=== PATIENT | male | born 1960 | race African-American/Black ===

== ENCOUNTER 2022-08-23 20:18 | Emergency (ER) | payer OTHER ==
[~2022-08-23] VITALS: Ht 182.9 cm; Wt 99.8 kg
[2022-08-23 21:05] VITALS: BP 143/97
--- NOTE | 2022-08-23 21:10 | NUR ---
TO LOBBY FOLLOWING TRIAGE
[2022-08-23 21:31] LABS: BASOPHILS # (AUTO) 0.1 K/uL (0.00-0.22); BASOPHILS % (AUTO) 0.3 % (0.0-2.0); EOSINOPHILS # (AUTO) 0.1 K/uL (0-0.4); EOSINOPHILS % (AUTO) 0.6 % (0.0-4.0); HEMATOCRIT 46.4 % (36-52); HEMOGLOBIN 15.7 g/dL (12.0-18.0); LYMPHOCYTES # (AUTO) 1.1 K/uL (2.0-11.5); LYMPHOCYTES % (AUTO) 6.9 % (20.5-51.1); MEAN CORPUSCULAR HEMOGLOBIN 32 pg (27-31); MEAN CORPUSCULAR HGB CONC 34 g/dL (33-37); MEAN CORPUSCULAR VOLUME 93.4 fL (80-94); MONOCYTES # (AUTO) 0.8 K/uL (0.8-1.0); MONOCYTES % (AUTO) 4.8 % (1.7-9.3); NEUTROPHILS # (AUTO) 13.9 K/uL (1.8-7.7); NEUTROPHILS % (AUTO) 87.4 % (42.2-75.2); PLATELET COUNT (AUTO) 316 K/uL (140-450); RED BLOOD CELL COUNT(AUTO) 4.96 MIL/uL (4.20-6.10); RED CELL DISTRIBUTION WIDTH 12.8 % (11.6-13.7); WHITE BLOOD COUNT (AUTO) 15.9 K/uL (4.8-10.8)
[2022-08-23 22:20] LABS: ALBUMIN 4.4 g/dL (3.4-5.0); ANION GAP 12.2 (8-16); POTASSIUM 4.2 mmol/L (3.5-5.1); TOTAL BILIRUBIN 0.4 mg/dL (0.0-1.0)
--- NOTE | 2022-08-24 01:37 | NUR ---
CALLED PT IN LOBBY, NO ANSWER
--- NOTE | 2022-08-24 01:41 | NUR ---
called pt to number on chart, no answer, left a message.veda mchugh made aware.
--- NOTE | 2022-08-24 06:29 | NUR ---
SPOKE TO ROSEANN, PT'S , UPDATED ON PT'S CT SCAN. STATES SHE WILL WAKE HIM UP AND HAVE HIM COME IN. Addendum: 08/24/22 at 0631 by MATA ABA BISHOP
[2022-08-24] MEDS ORDERED: BENA1TAB PO (12:20)
== END 2022-08-24 01:37 | disposition left against medical advice (07) ==
LOC: MED 20:18
DX: R10.9 Unspecified abdominal pain (principal); Z53.21 Procedure and treatment not carried out due to patient leaving prior to being seen by health care provider
CPT/HCPCS: 36415; 80053; 83690; 85025

== ENCOUNTER 2022-08-24 07:16 | Inpatient (IN) | payer OTHER ==
[~2022-08-24] VITALS: Ht 182.9 cm; Wt 99.8 kg
[2022-08-24 07:21] VITALS: BP 115/79
--- NOTE | 2022-08-24 07:24 | NUR ---
PT AMB TO ER BED 03.
--- NOTE | 2022-08-24 07:38 | NUR ---
Pt bibs as for call back after CT results were recieved this morning and pt eloped. Pt originally came in for abd pain. Pt states he has had normal bowel movements. Pt currently denies pain. Pt is a/o x 4, vss, no ss of acute distress, breathing equal and unlabored, speech clear. has seen pt.
--- NOTE | 2022-08-24 08:11 | NUR ---
Covid specimen obtained/labeled and sent to lab.
[2022-08-24 08:19] LABS: BASOPHILS % (AUTO) 0.2 % (0.0-2.0); EOSINOPHILS # (AUTO) 0.2 K/uL (0-0.4); HEMATOCRIT 42.4 % (36-52); HEMOGLOBIN 14.4 g/dL (12.0-18.0); LYMPHOCYTES # (AUTO) 1.3 K/uL (2.0-11.5); MEAN CORPUSCULAR HEMOGLOBIN 31 pg (27-31); MEAN CORPUSCULAR HGB CONC 34 g/dL (33-37); MEAN CORPUSCULAR VOLUME 92.5 fL (80-94); MONOCYTES # (AUTO) 0.9 K/uL (0.8-1.0); MONOCYTES % (AUTO) 9.6 % (1.7-9.3); NEUTROPHILS # (AUTO) 6.7 K/uL (1.8-7.7); NEUTROPHILS % (AUTO) 74.2 % (42.2-75.2); PLATELET COUNT (AUTO) 287 K/uL (140-450); RED BLOOD CELL COUNT(AUTO) 4.58 MIL/uL (4.20-6.10)
[2022-08-24 08:35] LABS: PROTHROMBIN TIME 10.4 secs (10.8-13.4)
[2022-08-24 08:58] LABS: APPEARANCE,URINE CLEAR (CLEAR); BILIRUBIN,URINE NEGATIVE (NEGATIVE); BLOOD, URINE NEGATIVE (NEGATIVE); COLOR,URINE YELLOW (YELLOW); LEUKOCYTE ESTERASE ,URINE NEGATIVE (NEGATIVE); NITRITE, URINE NEGATIVE (NEGATIVE); UGLUCOSE NEGATIVE (NEGATIVE)
--- NOTE | 2022-08-24 09:00 | NUR ---
UA obtained/labeled and sent to lab.
[2022-08-24 09:08] LABS: ALBUMIN 3.9 g/dL (3.4-5.0); ANION GAP 9.7 (8-16); CARBON DIOXIDE 30.5 mmol/L (21-32); CREATININE 1.1 mg/dL (0.6-1.3); POTASSIUM 3.2 mmol/L (3.5-5.1)
[2022-08-24 09:24] LABS: TOTAL BILIRUBIN 0.7 mg/dL (0.0-1.0)
[2022-08-24] MEDS ORDERED: POTASSIUM CHLORIDE 10 MEQ TABER PO PRN (11:50)
[2022-08-24] MEDS ORDERED: ONDANSETRON 4 MG/2 ML VIAL IVP PRN (11:50)
[2022-08-24] MEDS ORDERED: ACETAMINOPHEN 325 MG TAB PO PRN (11:50)
[2022-08-24] MEDS ORDERED: HYDROcodone/APAP 7.5/325 MG 1 TAB PO PRN (11:50)
[2022-08-24] MEDS ORDERED: MAG SULF 2000 MG/WATER PREMIX 50 ML IV PRN (11:50)
[2022-08-24] MEDS ORDERED: BENA1TAB PO (12:20)
[2022-08-24] MEDS: NACL 0.9% 1,000 ML IV SCH ×2 (12:36→20:22)
[2022-08-24 12:46] LABS: CHOL/HDL RATIO 2.9 (1-4.5); FREE T4 (FREE THYROXINE) 0.94 ng/dL (0.76-1.46); HDL CHOLESTEROL 68 mg/dL (40-60); LDL (CALC) 114 mg/dL (60-100); PHOSPHORUS 2.5 mg/dL (2.5-4.9); THYROID STIMULATING HORMONE 0.71 uIU/mL (0.34-3.74); TRIGLYCERIDES 81 mg/dL (30-150)
--- NOTE | 2022-08-24 13:34 | NUR ---
Report given to PUJA Love. Pt in stable condition, vss, no ss of acute distress.
--- NOTE | 2022-08-24 13:35 | NUR ---
REPORT RECEIVED VIA PHONE FROM ER NURSE.
--- NOTE | 2022-08-24 14:06 | NUR ---
PT ARRIVED ON [facility] UNIT. PT AMBULATORY. NO SOB OR RESPIRATORY DISTRESS. ON RA. DENIES NAUSEA/VOMITING. C/O MILD ABDOMINAL TENDERNESS. NPO. AMBULATORY. NS @ 120 ML/HR. SKIN INTACT. NEEDS ALL MET. ALL SAFETY MEASURES IN PLACE. MRSA NARES TAKEN.
[2022-08-24 14:30] VITALS: BP 128/79
[2022-08-24 16:00] VITALS: BP 125/75
--- NOTE | 2022-08-24 16:10 | NUR ---
PATIENT HAS BEEN SCREENED AND CATEGORIZED MODERATE NUTRITION RISK. PATIENT WILL BE SEEN WITHIN 3-5 DAYS OF ADMISSION. REVIEWED BY ESSENCE DE GUZMAN [address]
--- NOTE | 2022-08-24 16:12 | NUR ---
AASHISH GIPSON GIVEN. AT BEDSIDE. ALL QUESTIONS ANSWERED.
--- NOTE | 2022-08-24 16:30 | NUR ---
DR. DICKINSON ROUNDED ON PT. ORDER FOR TRANSFER TO [facility] AND CARDIAC DIET. ORDERS INPUTTED. ALL QUESTIONS ANSWERED. PT DENIES PAIN. NO N/V/D. NEEDS ALL MET, ALL SAFETY MEASURES IN PLACE.
--- NOTE | 2022-08-24 19:17 | NUR ---
BEDSIDE REPORT GIVEN TO NIGHTSHIFT NURSE TORIBIO FOR CONTINUITY OF CARE.
[2022-08-24] MEDS: DOCUSATE SODIUM 100 MG GELCAP PO SCH (20:44)
[2022-08-25] VITALS: BP 109/78
[2022-08-25] MEDS: NACL 0.9% 1,000 ML IV SCH (03:51)
[2022-08-25 05:44] LABS: BASOPHILS % (AUTO) 0.3 % (0.0-2.0); EOSINOPHILS # (AUTO) 0.2 K/uL (0-0.4); EOSINOPHILS % (AUTO) 3.8 % (0.0-4.0); HEMATOCRIT 40.4 % (36-52); HEMOGLOBIN 13.5 g/dL (12.0-18.0); LYMPHOCYTES # (AUTO) 1.2 K/uL (2.0-11.5); LYMPHOCYTES % (AUTO) 18.3 % (20.5-51.1); MEAN CORPUSCULAR HEMOGLOBIN 32 pg (27-31); MEAN CORPUSCULAR HGB CONC 33 g/dL (33-37); MEAN CORPUSCULAR VOLUME 94.2 fL (80-94); MONOCYTES # (AUTO) 0.7 K/uL (0.8-1.0); MONOCYTES % (AUTO) 11.3 % (1.7-9.3); NEUTROPHILS # (AUTO) 4.2 K/uL (1.8-7.7); NEUTROPHILS % (AUTO) 66.3 % (42.2-75.2); PLATELET COUNT (AUTO) 269 K/uL (140-450); RED BLOOD CELL COUNT(AUTO) 4.29 MIL/uL (4.20-6.10); RED CELL DISTRIBUTION WIDTH 13.2 % (11.6-13.7); WHITE BLOOD COUNT (AUTO) 6.4 K/uL (4.8-10.8)
[2022-08-25 06:29] LABS: PHOSPHORUS 3.3 mg/dL (2.5-4.9)
[2022-08-25 06:32] LABS: ANION GAP 10.7 (8-16); CARBON DIOXIDE 26.9 mmol/L (21-32); POTASSIUM 3.6 mmol/L (3.5-5.1)
--- NOTE | 2022-08-25 07:22 | NUR ---
LAST NIGHT ALLEN CALLED FROM [facility] AND ASKED ANDREW DIRECTOR MEETINGS TO UPDATE HIM.I CALLED HIM AND UPDATED HIM .HE ASKED FOR 'S PHONE # I GAVE TO HIM.
--- NOTE | 2022-08-25 08:24 | NUR ---
Patient asking about [place] transfer situation, pending per notes.
[2022-08-25] MEDS ORDERED: HYDROCHLOROTHIAZIDE PO SCH (09:00)
[2022-08-25] MEDS ORDERED: PANTOPRAZOLE 40 MG INJ VIAL IVP SCH (09:00)
[2022-08-25] MEDS ORDERED: BENAZEPRIL 20 MG TAB PO SCH (09:00)
[2022-08-25] MEDS ORDERED: [UNRECOGNIZED DRUG - OTHER] PO SCH (09:00)
[2022-08-25] MEDS ORDERED: hydroCHLOROthiazide 25 MG TAB PO SCH (09:00)
[2022-08-25] MEDS ORDERED: BENAZEPRIL PO SCH (09:00)
--- NOTE | 2022-08-25 09:15 | NUR ---
[place] transfer center says they only accept covid pcr. Still attempting to get hospitalist to accept and a bed.
[2022-08-25] MEDS: DOCUSATE SODIUM 100 MG GELCAP PO SCH (10:44)
--- NOTE | 2022-08-25 11:45 | NUR ---
[facility] AWARE DOCTOR RANDI LE WANTS TO FOLLOW PATIENT ATTENDING. [facility] IN [facility]ER [facility] SAYS THEY ARE WAITING ON AN AUTH. SHE IS AWARE COVID PCR IS IN PROCESS IN [facility].
== END 2022-08-25 13:00 | disposition home or self-care (01) | DRG 390 ==
LOC: MED 07:16 → MTU 11:54 → MMU 21:03
DX: K56.600 Partial intestinal obstruction, unspecified as to cause (principal); E87.6 Hypokalemia; E83.51 Hypocalcemia; I10 Essential (primary) hypertension; Z20.822 Contact with and (suspected) exposure to COVID-19; R19.09 Other intra-abdominal and pelvic swelling, mass and lump
CPT/HCPCS: 36415; 71045; 80048; 80053; 81003; 82140; 83036; 83605; 83690; 83735; 83880; 84100; 84439; 84443; 84484; 85025; 85610; 85730; 87081; 87635-QW; 93005; 96360; 99285; C9113; J1644; Q0092